=== PATIENT | female | born 1975 ===

== ENCOUNTER 2017-04-03 18:12 | Emergency (ER) | payer MEDICAID, OTHER ==
[2017-04-03 18:13] VITALS: BMI 24.1
[2017-04-03 18:16] VITALS: RESP 18
--- NOTE | 2017-04-03 20:07 | C.PDOC ---
History Of Present Illness 42 y/o female with Hx of Anxiety presents to ED with complaints of feeling anxious and unable to control symptoms over the past week. Patient states she was taking Klonopin 1mg daily but no longer wants to be on it and stopped 2 months ago. Patient denies SI/HI, hallucinations, chest pain, SOB, weakness, numbness or any other complaints at this time. Time Seen by Provider: 04/03/17 18:29 Chief Complaint (Nursing): Anxiety History Per: Patient History/Exam Limitations: no limitations Onset/Duration Of Symptoms: Days Current Symptoms Are (Timing): Still Present Suicide/Self Injury Attempted (Context): None Modifying Factor(s): None Past Medical History Reviewed: Historical Data, Nursing Documentation, Vital Signs Vital Signs: Last Vital Signs Temp 97.4 F L 04/03/17 20:10 Pulse 64 04/03/17 20:10 Resp 18 04/03/17 20:10 BP 122/82 04/03/17 20:10 Pulse Ox 97 04/03/17 21:03 - Medical History PMH: Anemia, Anxiety, Arthritis, Asthma, Depression, Gastrointestinal Ulcer, Pneumonia Surgical History: No Surg Hx - [facility] Procedures APPLICATION OF SPLINT (02/19/06) D & C POST DELIVERY (02/12/02) ELECTROCARDIOGRAM (06/20/00) INJECT/INFUSE NEC (09/14/13) INTRODUCTION OF SERUM/TOX/VACCINE INTO MUSCLE, PERC APPROACH (09/23/15) NEBULIZER THERAPY (09/21/06) OTHER NONOP RESPIRATORY MEASURE (06/20/00) PSYCHIA INTERV/EVAL NEC (10/16/13) REMOV TUBE & ECTOP PREG (02/12/02) TRANSFUSE NONAUT RED BLOOD CELLS IN PERIPH VEIN, PERC (09/07/15) Family History: States: No Known Family Hx - Social History Hx Tobacco Use: Yes Hx Alcohol Use: No (pt denies) Hx Substance Use: Yes (pt denies) - Immunization History Hx Tetanus Toxoid Vaccination: No Hx Influenza Vaccination: No Hx Pneumococcal Vaccination: No Review Of Systems Except As Marked, All Systems Reviewed And Found Negative. Cardiovascular: Negative for: Chest Pain Respiratory: Negative for: Shortness of Breath Skin: Negative for: Rash Neurological: Negative for: Weakness, Numbness Psych: Positive for: Anxiety. Negative for: Suicidal ideation Physical Exam - Physical Exam Appears: No Acute Distress, Other (Anxious) Skin: Normal Color, Warm, Dry, No Rash Head: Atraumatic, Normacephalic Eye(s): bilateral: Normal Inspection Oral Mucosa: Moist Chest: Symmetrical Cardiovascular: Rhythm Regular, No Murmur Respiratory: Normal Breath Sounds, No Rales, No Rhonchi, No Wheezing Gastrointestinal/Abdominal: Soft, No Tenderness, No Guarding, No Rebound Neurological/Psych: Oriented x3, Normal Speech, Normal Motor, Normal Sensation ED Course And Treatment O2 Sat by Pulse Oximetry: 97 (RA) Pulse Ox Interpretation: Normal Medical Decision Making Medical Decision Making: Crisis at bedside and evaluated patient. Crisis states that the patient is cleared for discharge and will follow up with outpatient psych. Xanax 0.25mg given On re-exam, the patient reports improvement of symptoms. Lungs are CTA, heart is RRR, abdomen is soft, non-tender and tolerating PO well. Ambulatory in the ED with steady gait. Follow up with the medical doctor within 1-2 days. Return if worsened. Disposition - Disposition Referrals: Lv Raya MD [Staff Provider] - Disposition: HOME/ ROUTINE Disposition Time: 20:06 Condition: GOOD Additional Instructions: Follow up with the psych doctor within 1-2 days as scheduled. Return if worsened. Instructions: Anxiety (ED) Forms: [facility] (Vietnamese) - Clinical Impression Clinical Impression: Anxiety - PA / [employer] / Resident Statement MD/DO has reviewed & agrees with the documentation as recorded. - Scribe Statement The provider has reviewed the documentation as recorded by the Auroraibmaura Diggs All medical record entries made by the Auroraibe were at my direction and personally dictated by me. I have reviewed the chart and agree that the record accurately reflects my personal performance of the history, physical exam, medical decision making, and the department course for this patient. I have also personally directed, reviewed, and agree with the discharge instructions and disposition.
[2017-04-03 20:31] VITALS: BP 122/82; PULSE 64; TEMP 97.4
[2017-04-03 21:00] VITALS: O2SAT 97
== END 2017-04-03 20:10 | disposition home or self-care (01) ==
LOC: C.ER 18:12
DX: F41.9 Anxiety disorder, unspecified (principal)

== ENCOUNTER 2017-11-19 14:52 | Inpatient (IN) | payer MEDICAID, OTHER ==
[2017-11-19 14:52] VITALS: BMI 24.1
[2017-11-19 15:53] LABS: BASO % 0.5 % (0.0-2.0); EOS # 0.1 K/uL (0.0-0.7); EOS % 2.3 % (0.0-4.0); HEMOGLOBIN 12.6 g/dL (11.0-16.0); LYMPH # 1.9 K/uL (1.0-4.3); MEAN CELL VOLUME 83.2 fL (81.0-99.0); MEAN CORPUSCULAR HEMOGLOBIN 26.6 pg (27.0-31.0); MEAN PLATELET VOLUME 8.4 fL (7.2-11.7); MONO # 0.4 K/uL (0.0-0.8); MONO % 7.1 % (0.0-10.0); NEUT # 3.1 K/uL (1.8-7.0); NEUT % 56.1 % (50.0-75.0); NRBC % 0.3 % (0.0-2.0); RBC 4.73 Mil/uL (3.80-5.20); RED CELL DISTRIBUTION WIDTH 22.9 % (11.5-14.5); WHITE BLOOD COUNT 5.5 K/uL (4.8-10.8)
[2017-11-19 16:02] LABS: HCG,QUALITATIVE URINE NEGATIVE (NEGATIVE)
[2017-11-19 16:06] LABS: ALB/GLOB RATIO 0.9 (1.0-2.1); ALBUMIN 4.2 g/dL (3.5-5.0); ALT/SGPT 58 U/L (9-52); AST/SGOT 67 U/L (14-36); BLOOD UREA NITROGEN 12 mg/dL (7-17); CALCIUM 8.8 mg/dl (8.6-10.4); GFR AFRICAN-AMERICAN > 60; GFR NON-AFRICAN AMERICAN > 60
[2017-11-19 16:07] LABS: SQUAMOUS EPITHIAL 8 /hpf (0-5); URINE BILIRUBIN NEGATIVE (NEGATIVE); URINE BLOOD NEGATIVE (NEGATIVE); URINE CLARITY Hazy (Clear); URINE COLOR Yellow (YELLOW); URINE GLUCOSE (UA) NORMAL (Normal); URINE LEUKOCYTE ESTERASE NEG Leu/uL (Negative); URINE PROTEIN NEGATIVE (NEGATIVE); URINE UROBILINOGEN NORMAL mg/dL (0.2-1.0)
[2017-11-19 16:11] LABS: BARBITURATES, UR NEGATIVE (NEGATIVE); BENZODIAZEPINES, UR NEGATIVE (NEGATIVE); OPIATES, UR NEGATIVE (NEGATIVE); PHENCYCLIDINE, UR NEGATIVE (NEGATIVE)
--- NOTE | 2017-11-19 16:45 | C.PDOC ---
History Of Present Illness 42 yo female w/PMHx of polysubstance abuse, in rehab now, hx of depression, complaint with medication, come in for evaluation of depression, suicidal ideation, denies plan gradually developed for past week. Pt denies hallucination , denies homocidal ideation. Pt denies any other active physical complaints. At the time of evaluation, pt appears comfortable, not in any apparent distress. Time Seen by Provider: 11/19/17 15:17 Chief Complaint (Nursing): Psychiatric Evaluation History Per: Patient Past Medical History Reviewed: Historical Data, Nursing Documentation, Vital Signs Vital Signs: Last Vital Signs Temp 102.0 F H 11/19/17 18:02 Pulse 60 11/19/17 17:23 Resp 17 11/19/17 17:23 BP 113/74 11/19/17 17:23 Pulse Ox 98 11/19/17 17:45 - Medical History PMH: Anemia, Anxiety, Arthritis, Asthma, Depression, Gastrointestinal Ulcer, Pneumonia Denies: Dementia, Diabetes, Hepatitis, HIV, HTN, Personality Disorder, Post Traumatic Stress Disorder, Chronic Kidney Disease, Schizophrenia, Seizures, Sexually Transmitted Disease Surgical History: No Surg Hx - [facility] Procedures APPLICATION OF SPLINT (02/19/06) D & C POST DELIVERY (02/12/02) ELECTROCARDIOGRAM (06/20/00) INJECT/INFUSE NEC (09/14/13) INTRODUCTION OF SERUM/TOX/VACCINE INTO MUSCLE, PERC APPROACH (09/23/15) NEBULIZER THERAPY (09/21/06) OTHER NONOP RESPIRATORY MEASURE (06/20/00) PSYCHIA INTERV/EVAL NEC (10/16/13) REMOV TUBE & ECTOP PREG (02/12/02) TRANSFUSE NONAUT RED BLOOD CELLS IN PERIPH VEIN, PERC (09/07/15) Family History: States: Unknown Family Hx - Social History Hx Tobacco Use: Yes Hx Alcohol Use: No (pt denies) Hx Substance Use: Yes (pt denies) - Immunization History Hx Tetanus Toxoid Vaccination: No Hx Influenza Vaccination: No Hx Pneumococcal Vaccination: No Review Of Systems Except As Marked, All Systems Reviewed And Found Negative. Constitutional: Negative for: Fever, Chills Eyes: Negative for: Vision Change ENT: Negative for: Ear Discharge, Nose Discharge, Throat Pain, Throat Swelling Cardiovascular: Negative for: Chest Pain, Paroxysmal Noc. Dyspnea Respiratory: Negative for: Cough, Shortness of Breath, Wheezing Gastrointestinal: Negative for: Nausea, Vomiting, Abdominal Pain, Diarrhea Genitourinary: Negative for: Dysuria, Frequency Musculoskeletal: Negative for: Neck Pain, Back Pain Skin: Negative for: Rash Neurological: Negative for: Altered Mental Status Psych: Positive for: Depression. Negative for: Suicidal ideation, Withdrawal Physical Exam - Physical Exam Appears: Well, Non-toxic, No Acute Distress Skin: Normal Color, Warm, Dry, No Rash Head: Atraumatic, Normacephalic Eye(s): bilateral: PERRL Ear(s): Bilateral: Normal Nose: No Flaring, No Discharge Oral Mucosa: Moist, No Drooling Throat: No Erythema, No Drooling Neck: Trachea Midline, Supple Cardiovascular: Rhythm Regular Respiratory: No Decreased Breath Sounds, No Accessory Muscle Use, No Stridor, No Wheezing Gastrointestinal/Abdominal: Soft, No Tenderness, No Distention, No Guarding, No Ascites Back: Normal Inspection Extremity: Normal ROM, No Pedal Edema, No Deformity, No Swelling Neurological/Psych: Oriented x3, Normal Speech ED Course And Treatment - Laboratory Results Result Diagrams: 11/19/17 15:47 11/19/17 15:47 Lab Interpretation: Normal Urine POC: Negative O2 Sat by Pulse Oximetry: 98 Pulse Ox Interpretation: Normal Progress Note: At 16:40, pt remained stable. Afebrile, hemodynamicaly stable. Non-toxic. Neurologicaly intact. Blood work review and appears without new acute changes. Patient is medically cleared for PES evaluation. After pt was seen by PES worker, and case discussed with psy-on-call , admission arranged to psych floor with Dx: Major depression, suicidal ideation. Pt agrees with plan. Disposition - Disposition Disposition: HOSPITALIZED Disposition Time: 16:46 Condition: STABLE - Clinical Impression Clinical Impression: Moderate major depression, single episode
--- NOTE | 2017-11-19 19:11 | PCM.BM ---
<Jose Guadalupe Montes - Last Filed: 11/19/17 19:09> Treatment Plan Problems - Problems identified on initial assessmt Depression Date Initiated: 11/19/17 Time Initiated: 18:35 Assessment reference: NA Status: Active Substance Abuse Date Initiated: 11/19/17 Time Initiated: 18:35 Assessment reference: NA Status: Active Treatment assets and liabiliti Patient Assests: adapts well, cooperative, educated, self-reliant, ADL independent, negotiates basic needs, cognitively intact Patient Liabilities: live alone (Currently in [facility]), financial problems (Unemployed), substance abuse (Heroin), medical problems (2 Herniated disks), legal issue (Probation for forgery and shoplifting) - Milieu Protocol Maintain good personal hygiene: daily Encourage regular showers, every shift Remind patient to perform daily oral care, every shift Assist patient to perform ADL's Conduct patient checks and document Observation sheet: Q15 minutes (For safety) Maintain personal safety: every shift Educate patient to report safety concerns to staff, every shift Monitor environment for contraband/sharps Medication safety: Monitor for expected outcome, potential side effects: every shift, Assess barriers to learning: every shift, Assess readiness for medication education: every shift <Harriet Dupree - Last Filed: 11/20/17 10:49> - Diagnosis (1) Moderate major depression, single episode Status: Acute Interventions: 11/20/17 10:49 * Assess/adjust medications daily and /or as needed * See patient on an individual basis 7x/week to assess symptoms of depression * Monitor for side effects & effectiveness of medications * <Dariela Peguero - Last Filed: 11/20/17 10:58> Family Contact Family involvement: Famliy/SO not involved - Goals for Treatment Patient goals for treatment: "I want to go back to rehab." Discharge/Continuing Care - Education Needs Education Needs: Patient Medication, Patient Coping Skills, Patient Placement options, Patient Community resources - Discharge Discharge Criteria: Tolerates medication w/o severe side effects, Free of Suicidal thoughts, No longer exhibiting s/s of withdrawal Discharge to:: Substance Abuse Rehab - Treatment Team Participation Discussed with Family/SO: No Was Patient/Family/SO present at Treatment Team Meeting: Yes
--- NOTE | 2017-11-20 10:33 | PCM.PSYCH ---
Initial Psychiatric Evaluation - Initial Psychiatric Evaluation Type of Admission: Voluntary Legal Status: Capacity Chief Complaint (in patient's own words): CC: "I was depressed and feeling suicidal" History of Present Illness and Precipitating Events: HPI: 42 year old female with PMHx of depression and anxiety presents complaining of severe anxiety and depression worsening over the last few weeks. Patient recently began a rehab program for heroin and cocaine use, states she last used heroin and cocaine 3 months ago. She states that her mother 5 years and and her 1 year ago and she has gets very depressed when she thinks of them. Associated symptoms include seeing shadows and hearing voices calling her name, severe anxiety characterized by palpitations, racing thoughts, and insomnia. She reports of using cocaine $20 IV and 30 bags heroin daily IV up until 3 months ago, currently in rehab program. She denies any withdrawal symptoms. PsychHx: anxiety, depression; no previous psychiatric hospitalizations SocialHx: lives with daughter but currently at rehab; denies alcohol use; used cocaine IV and 30 bags heroin daily IV up until 3 months ago, currently in rehab program PMHx: anemia, arthritis Current Medications: Active Medications Generic Name Dose Route Start Last Admin Trade Name Freq PRN Reason Stop Dose Admin Acetaminophen 650 mg 11/19/17 22:10 Tylenol 325mg Tab PO Q6 PRN Fever >100.4 F Hydroxyzine HCl 25 mg 11/19/17 22:11 Atarax PO Q6 PRN Anxiety Pneumococcal Polyvalent Vaccine 0.5 ml 11/21/17 10:00 Pneumovax 23 Vaccine IM 11/21/17 10:01 .ONCE ONE Quetiapine Fumarate 200 mg 11/19/17 22:00 11/19/17 22:12 Seroquel PO 200 mg HS HALINA Administration Quetiapine Fumarate 50 mg 11/19/17 22:00 11/19/17 22:12 Seroquel PO 50 mg HS HALINA Administration Past Psychiatric History - Past Psychiatric History Previous Treatment History: None Pertinent Medical Hx (Current Medical&Sleep Prob, Allergies): Allergies Allergy/AdvReac Type Severity Reaction Status Date / Time No Known Allergies Allergy Verified 11/19/17 15:03 Ascorbic Acid [Vitamin C] 500 mg PO DAILY 11/19/17 Ferrous Sulfate 325 mg PO DAILY 11/19/17 Gabapentin [Neurontin] 400 mg PO TID 11/19/17 Multivit,Tx with Iron,Minerals [Therems-M] 1 each PO DAILY 11/19/17 QUEtiapine [SEROquel XR] 250 mg PO HS 11/19/17 Quetiapine Fumarate [Quetiapine Fumarate ER] 11/19/17 Ranitidine HCl [Ranitidine 150] 150 mg PO DAILY 11/19/17 Venlafaxine HCl [Venlafaxine HCl ER] 37.5 mg PO DAILY 11/19/17 Venlafaxine HCl [Venlafaxine HCl ER] 150 mg PO DAILY 11/19/17 Review of Systems - Review of Systems All systems: reviewed and no additional remarkable complaints except - Psychiatric Psychiatric: Anxiety, Depression, Hallucinations, Irritability, Suicidal Ideation Mental Status Examination - Personal Presentation Personal Presentation: Looks older than stated age - Affect Affect: Constricted, Depressed - Motor Activity Motor Activity: Calm - Reliability in Providing Information Reliability in Providing Information: Fair - Speech Speech: Organized - Mood Mood: Depressed, Anxious - Formal Thought Process Formal Thought Process: No Impairment - Hallucinations/Delusions Hallucinations: Visual, Auditory - Obsessions/Compulsions Obsessions: No Compulsions: No - Cognitive Functions Orientation: Person, Place, Situation, Time Sensorium: Alert Attention/Concentration: Attentive Abstract Thinking: Burns Estimate of Intelligence: Below average Judgement: Imparied, as evidence by: Poor judgement, Imparied, as evidence by: Lack of insight into illness - Risk Risk: Suicidal, Diminished functioning - Limitations Limitations: Living alone DSM 5 DX - DSM 5 DSM 5 Diagnosis: Bipolar II disorder mixed severe Opiate use disorder severe in sustained remission Cocaine use disorder severe in sustained remission - Recommended/Plan of Treatment Treatment Recommendations and Plan of Treatment: Bipolar II disorder mixed severe -psychotherapy -support group and individual therapy -Atarax 25 mg PO Q6 PRN -Seroquel 250 mg PO QHS -gabapentin 400 mg PO TID -Citalopram 10 mg PO daily Opiate use disorder severe in sustained remission -Psychoeducation -Supportive therapy, individual therapy -Use IN for abstinence Cocaine use disorder severe in sustained remission -Psychoeducation -Supportive therapy, individual therapy -Use IN for abstinence - - Smoking Cessation Smoking Cessation Initiated: No
[2017-11-20] MEDS: Multivitamin With Minerals Tab PO SCH (11:11)
--- NOTE | 2017-11-21 08:47 | PCM.PYCHPN ---
Psychiatric Progress Note - Psychiatric Progress Note Patient seen today, length of contact: 16 min Patient Chief Complaint: CC: "I was depressed and feeling suicidal" Problems Identified/Issues Discussed: Patient seen and evaluated, chart reviewed and discussed with the nurse. Patient continues to have auditory and visual hallucinations of shadows. She states her depression is a little better than yesterday but that she has not been able to sleep. Patient is still withdrawn but more open to conversation today. Patient is compliant with medications and denies any side effects. Symptoms are improving but need more time to stabilize. Support and psychoeducation given. Medication Change: Yes (celexa) Medical Record Reviewed: Yes Mental Status Examination - Cognitive Function Orientation: Person, Place, Situation, Time Memory: Intact Attention: WNL Concentration: Poor Association: WNL Fund of Knowledge: Poor - Mood Mood: Depressed, Anxious - Affect Affect: Constricted, Depressed - Speech Speech: Soft - Formal Thought Process Formal Thought Process: Hallucinations, Paranoia - Suicidal Ideation Suicidal Ideation: No - Homicidal Ideation Homicidal Ideation: No Goal/Treatment Plan - Goal/Treatment Plan Need for Continued Stay: Severe depression anxiety, Severe functional impairment Progress Toward Problem(s) and Goals/Treatment Plan: Bipolar II disorder mixed severe -psychotherapy -support group and individual therapy -Atarax 25 mg PO Q6 PRN -Seroquel 250 mg PO QHS -gabapentin 400 mg PO TID -Citalopram 10 mg PO daily Opiate use disorder severe in sustained remission -Psychoeducation -Supportive therapy, individual therapy -Use WA for abstinence Cocaine use disorder severe in sustained remission -Psychoeducation -Supportive therapy, individual therapy -Use WA for abstinence - - Smoking Cessation Smoking Cessation Initiated: No
[2017-11-21] MEDS: Multivitamin With Minerals Tab PO SCH (09:56)
[2017-11-21] MEDS ORDERED: Pneumococcal 23-Valent Vaccine IM ONE (10:00)
[2017-11-22] MEDS: Multivitamin With Minerals Tab PO SCH (09:58)
--- NOTE | 2017-11-22 11:14 | PCM.PYCHPN ---
Psychiatric Progress Note - Psychiatric Progress Note Patient seen today, length of contact: 16 min Patient Chief Complaint: CC: "I was depressed and feeling suicidal" Problems Identified/Issues Discussed: Patient seen and evaluated, chart reviewed and discussed with the nurse. Patient did not have any visual or auditory hallucinations yesterday or over night. She states her depression and trouble sleeping is getting better but she needs more time. She has been interacting with other patients. She complains of shooting sciatica pain in her right posterior thigh. Patient is compliant with medications and denies any side effects. Symptoms are improving but need more time to stabilize. Support and psychoeducation given. Medication Change: Yes (celexa) Medical Record Reviewed: Yes Mental Status Examination - Cognitive Function Orientation: Person, Place, Situation, Time Memory: Intact Attention: WNL Concentration: Poor Association: WNL Fund of Knowledge: Poor - Mood Mood: Depressed, Anxious - Affect Affect: Constricted, Depressed - Speech Speech: Soft - Formal Thought Process Formal Thought Process: Paranoia - Suicidal Ideation Suicidal Ideation: No - Homicidal Ideation Homicidal Ideation: No Goal/Treatment Plan - Goal/Treatment Plan Need for Continued Stay: Severe depression anxiety, Severe functional impairment Progress Toward Problem(s) and Goals/Treatment Plan: Bipolar II disorder mixed severe -psychotherapy -support group and individual therapy -Atarax 25 mg PO Q6 PRN -Seroquel 250 mg PO QHS -gabapentin 400 mg PO TID -Citalopram 10 mg PO daily Opiate use disorder severe in sustained remission -Psychoeducation -Supportive therapy, individual therapy -Use GA for abstinence Cocaine use disorder severe in sustained remission -Psychoeducation -Supportive therapy, individual therapy -Use GA for abstinence -
[2017-11-23] MEDS: Multivitamin With Minerals Tab PO SCH (09:17)
--- NOTE | 2017-11-23 17:17 | PCM.PYCHPN ---
Psychiatric Progress Note - Psychiatric Progress Note Patient seen today, length of contact: 16 min Patient Chief Complaint: "I'm very anxious" Problems Identified/Issues Discussed: The pt is seen, chart reviewed, case discussed with staff. Support given, CBT and OK used briefly No new symptoms reported, improving slowly and needs more time No SEs from medications, risks discussed. After care discussed Increase seroquel Medication Change: Yes (seroquel) Medical Record Reviewed: Yes Mental Status Examination - Cognitive Function Orientation: Person, Place, Situation, Time Memory: Intact Attention: WNL Concentration: Poor Association: WNL Fund of Knowledge: Poor - Mood Mood: Depressed, Anxious - Affect Affect: Constricted, Depressed - Speech Speech: Soft - Formal Thought Process Formal Thought Process: Paranoia - Suicidal Ideation Suicidal Ideation: No - Homicidal Ideation Homicidal Ideation: No Goal/Treatment Plan - Goal/Treatment Plan Need for Continued Stay: Severe depression anxiety, Discharge may exacerbated symptoms, Severe functional impairment Progress Toward Problem(s) and Goals/Treatment Plan: Continue medications Support and psychoeducation daily Attend groups and activities daily After care planning by TIM
[2017-11-24] MEDS: Multivitamin With Minerals Tab PO SCH (09:41)
[2017-11-25 05:58] VITALS: RESP 18
--- NOTE | 2017-11-25 08:31 | PCM.PYCHPN ---
Psychiatric Progress Note - Psychiatric Progress Note Patient seen today, length of contact: 16 min Patient Chief Complaint: I am anxious Problems Identified/Issues Discussed: PT SEEN AND EXAMINED DISCUSSED WITH STAFF. KNOWS HE CANNOT HAVE KLONOPIN DISCUSSED NON NARCOTIC ANTIANXIETIES Medical Problems: NOTHING ACUTE Diagnostic Results: REVIEWED DSM 5 Symptoms Update: ANXIETY Medication Change: Yes (KEELEY) Medical Record Reviewed: Yes Mental Status Examination - Cognitive Function Orientation: Person, Place, Situation, Time Memory: Intact Attention: WNL Concentration: WNL Association: WNL Fund of Knowledge: WNL - Mood Mood: Depressed, Anxious - Affect Affect: Constricted, Depressed - Speech Speech: Appropriate, Soft - Formal Thought Process Formal Thought Process: No Impairment, Paranoia - Suicidal Ideation Suicidal Ideation: No - Homicidal Ideation Homicidal Ideation: No Goal/Treatment Plan - Goal/Treatment Plan Need for Continued Stay: Severe depression anxiety, Discharge may exacerbated symptoms, Severe functional impairment Progress Toward Problem(s) and Goals/Treatment Plan: BIPOLAR DISORDER [place] OR CBT SUPPORTIVE PSYCHOTHERAPY Estimated Date of D/C: 11/25/17 - Smoking Cessation Smoking Cessation Initiated: No
[2017-11-25] MEDS: Multivitamin With Minerals Tab PO SCH (10:10)
--- NOTE | 2017-11-25 11:23 | PCM.PYCHPN ---
Psychiatric Progress Note - Psychiatric Progress Note Patient seen today, length of contact: 16 min Patient Chief Complaint: CC: "I was depressed and feeling suicidal" Problems Identified/Issues Discussed: Patient seen and evaluated, chart reviewed and discussed with the nurse. Patient did not have any visual or auditory hallucinations yesterday or over night. She states her depression and trouble sleeping is getting better but she needs more time. She has been interacting with other patients. Patient is compliant with medications and denies any side effects. Symptoms are improving but need more time to stabilize. Support and psychoeducation given. Medication Change: Yes (BUSPAR) Medical Record Reviewed: Yes Mental Status Examination - Cognitive Function Orientation: Person, Place, Situation, Time Memory: Intact Attention: WNL Concentration: WNL Association: WNL Fund of Knowledge: WNL - Mood Mood: Depressed, Anxious - Affect Affect: Constricted, Depressed - Speech Speech: Appropriate, Soft - Formal Thought Process Formal Thought Process: No Impairment, Paranoia - Suicidal Ideation Suicidal Ideation: No - Homicidal Ideation Homicidal Ideation: No Goal/Treatment Plan - Goal/Treatment Plan Need for Continued Stay: Severe depression anxiety, Discharge may exacerbated symptoms, Severe functional impairment Progress Toward Problem(s) and Goals/Treatment Plan: Bipolar II disorder mixed severe -psychotherapy -support group and individual therapy -Atarax 25 mg PO Q6 PRN -Seroquel 250 mg PO QHS -gabapentin 400 mg PO TID -Citalopram 10 mg PO daily Opiate use disorder severe in sustained remission -Psychoeducation -Supportive therapy, individual therapy -Use IN for abstinence Cocaine use disorder severe in sustained remission -Psychoeducation -Supportive therapy, individual therapy -Use IN for abstinence - Estimated Date of D/C: 11/25/17
[2017-11-26 06:42] VITALS: BP 105/74; PULSE 100; TEMP 97.8; O2SAT 98
[2017-11-26] MEDS: Multivitamin With Minerals Tab PO SCH (09:53)
--- NOTE | 2017-11-26 11:23 | PCM.PYCHDC ---
Mental Status Examination - Mental Status Examination Orientation: Person, Place, Situation, Time Memory: Intact Mood: Neutral Affect: Constricted Speech: Soft Attention: WNL Concentration: WNL Association: WNL Fund of Knowledge: WNL Formal Thought Process: No Impairment Description of patient's judgement and insight: good, fair Psychotic Thoughts and Behaviors: denies any AVH Suicidal Ideation: No Current Homicidal Ideation?: No Discharge Summary - Discharge Note Reason for Hospitalization: HPI: 42 year old female with PMHx of depression and anxiety presents complaining of severe anxiety and depression worsening over the last few weeks. Patient recently began a rehab program for heroin and cocaine use, states she last used heroin and cocaine 3 months ago. She states that her mother 5 years and and her 1 year ago and she has gets very depressed when she thinks of them. Associated symptoms include seeing shadows and hearing voices calling her name, severe anxiety characterized by palpitations, racing thoughts, and insomnia. She reports of using cocaine $20 IV and 30 bags heroin daily IV up until 3 months ago, currently in rehab program. She denies any withdrawal symptoms. Consultations:: List each consultation separately and include: 1. Reason for request. 2. Findings. 3. Follow-up Summary of Hospital Course include:: 1. Description of specific treatment plan utilized for patients during their course of treatmen. 2. Summarize the time- course for resolution of acute symptoms and/or regressed behaviors. 3. Describe issues identified and worked on during hospitalization. 4. Describe medication utilized. 5. Describe medical problems identified and treated. 6. Reassessment of suicide risk Summary of Hospital Course: HPI: 42 year old female with PMHx of depression and anxiety presents complaining of severe anxiety and depression worsening over the last few weeks. Patient recently began a rehab program for heroin and cocaine use, states she last used heroin and cocaine 3 months ago. She states that her mother 5 years and and her 1 year ago and she has gets very depressed when she thinks of them. Associated symptoms include seeing shadows and hearing voices calling her name, severe anxiety characterized by palpitations, racing thoughts, and insomnia. She reports of using cocaine $20 IV and 30 bags heroin daily IV up until 3 months ago, currently in rehab program. She denies any withdrawal symptoms. PsychHx: anxiety, depression; no previous psychiatric hospitalizations SocialHx: lives with daughter but currently at rehab; denies alcohol use; used cocaine IV and 30 bags heroin daily IV up until 3 months ago, currently in rehab program PMHx: anemia, arthritis - Diagnosis (1) Moderate major depression, single episode Current Visit: Yes Status: Acute - Final Diagnosis (DSM 5) Condition upon Discharge: STABLE DSM 5: Bipolar II disorder mixed severe Opiate use disorder severe in sustained remission Cocaine use disorder severe in sustained remission Disposition: HOME/ ROUTINE Follow-up Treatment Plan: Bipolar II disorder mixed severe -psychotherapy -support group and individual therapy -Atarax 25 mg PO Q6 PRN -Seroquel 250 mg PO QHS -gabapentin 400 mg PO TID -Citalopram 10 mg PO daily Opiate use disorder severe in sustained remission -Psychoeducation -Supportive therapy, individual therapy -Use MD for abstinence Cocaine use disorder severe in sustained remission -Psychoeducation -Supportive therapy, individual therapy -Use MD for abstinence - Prescriptions/Medication Reconciliation: busPIRone [Buspar] 10 mg PO BID #60 tab Escitalopram [Lexapro] 10 mg PO DAILY #30 tab Gabapentin [Neurontin] 600 mg PO BID #60 tab Gabapentin [Neurontin] 400 mg PO TID #90 cap QUEtiapine [SEROquel] 200 mg PO HS #30 tab - Smoking Cessation Smoking Cessation Medication prescribed: No - Antipsychotic Medications Pt discharged on 2 or more routine antipsychotic medications: No
== END 2017-11-26 12:14 | disposition home or self-care (01) | DRG 430 ==
LOC: C.ER 14:52 → C.5E 17:44
PROVIDERS: ADMIT Psychiatry & Neurology Psychiatry; ATTEND Psychiatry & Neurology Psychiatry
PROC: GZHZZZZ Group Psychotherapy (ICD-10-PCS; principal; 2017-11-19)
PROC: HZ56ZZZ Individual Psychotherapy for Substance Abuse Treatment, Psychoeducation (ICD-10-PCS; 2017-11-19)
PROC: GZ56ZZZ Individual Psychotherapy, Supportive (ICD-10-PCS; 2017-11-19)
PROC: HZ59ZZZ Individual Psychotherapy for Substance Abuse Treatment, Supportive (ICD-10-PCS; 2017-11-19)
PROC: HZ46ZZZ Group Counseling for Substance Abuse Treatment, Psychoeducation (ICD-10-PCS; 2017-11-19)
DX: F31.63 Bipolar disorder, current episode mixed, severe, without psychotic features (principal); F11.21 Opioid dependence, in remission; F14.21 Cocaine dependence, in remission; F41.9 Anxiety disorder, unspecified; J45.909 Unspecified asthma, uncomplicated; G47.00 Insomnia, unspecified; R45.851 Suicidal ideations